=== PATIENT | female | born 1965 | race African-American/Black ===

== ENCOUNTER 2025-11-14 03:48 | Emergency (ER) | payer MEDICAID ==
[~2025-11-14] VITALS: Ht 157.5 cm; Wt 55.0 kg
[2025-11-14 03:52] VITALS: O2SAT 99
[2025-11-14] MEDS: METOCLOPRAMIDE HCL 10MG TABLET PO ONE (04:27)
[2025-11-14] MEDS: DIPHENHYDRAMINE 25MG CAPSULE PO ONE (05:16)
[2025-11-14] MEDS: KETOROLAC 15MG/ML VIAL IM ONE (05:21)
[2025-11-14 05:55] LABS: BASOPHILS % 0.7 % (0.0-2.0); EOSINOPHILS % 3.5 % (0.0-5.0); HEMATOCRIT. 37.9 % (36.0-48.0); HEMOGLOBIN. 13.5 g/dL (12.0-16.0); LYMPHOCYTES % 29.9 % (20.0-50.0); MEAN PLATELET VOLUME 9.2 fl (7.4-10.4); MONOCYTES % 14.1 % (2.0-8.0); NEUTROPHILS % 51.8 % (40.0-76.0); PLATELET 227 x1000/uL (130-400); RED BLOOD CELL COUNT 4.33 mill/uL (4.2-5.4); RED CELL DISTRIBUTION WIDTH 13.7 % (11.6-14.6)
[2025-11-14 06:11] LABS: CREATININE 0.8 mg/dL (0.6-1.0); UREA NITROGEN BLOOD < 5 mg/dL (9-23)
[2025-11-14] MEDS: DIPHENHYDRAMINE 25MG CAPSULE PO NR (06:31)
[2025-11-14] MEDS: SODIUM CHLORIDE 0.9% 1,000 ML IV ONE (06:40)
[2025-11-14 08:13] LABS: CLARITY URINE CLEAR (CLEAR); COLOR URINE YELLOW (YELLOW); GLUCOSE URINE NEGATIVE (NEGATIVE); KETONES URINE NEGATIVE (NEGATIVE); LEUKOCYTE ESTERASE URINE NEGATIVE (NEGATIVE); NITRITE URINE NEGATIVE (NEGATIVE); OCCULT BLOOD URINE NEGATIVE (NEGATIVE); PH URINE 6.5 (4.5-8.0); PROTEIN URINE NEGATIVE (NEGATIVE); SPECIFIC GRAVITY URINE 1.003 (1.005-1.030); UROBILINOGEN URINE 0.2 E.U./dL (0.2-1.0)
[2025-11-14 08:44] LABS: *AMPHETAMINES SCREEN URINE NEGATIVE (NEGATIVE); *BARBITURATES SCREEN URINE NEGATIVE (NEGATIVE); *BENZODIAZEPINES SCREEN URINE NEGATIVE (NEGATIVE); *COCAINE SCREEN URINE NEGATIVE (NEGATIVE); CANNABINOID URINE SCREEN PRESUMPTIVE POSITIVE (NEGATIVE); ECSTASY MDMA SCREEN URINE NEGATIVE (NEGATIVE); METHADONE URINE SCREEN NEGATIVE (NEGATIVE); OPIATES URINE SCREEN NEGATIVE (NEGATIVE); PHENCYCLIDINE URINE SCREEN NEGATIVE (NEGATIVE)
[2025-11-14] MEDS ORDERED: TRAM50TA3 MT (10:06)
[2025-11-14] MEDS ORDERED: IBUP-1455 MT (10:06)
[2025-11-14] MEDS: TRAMADOL 50MG TABLET PO ONE (10:50)
[2025-11-14] MEDS: IBUPROFEN 600MG TABLET PO ONE (10:50)
[2025-11-14 11:11] VITALS: BP 124/75; PULSE 55; RESP 22; TEMP 37.1; O2SAT 98
== END 2025-11-14 11:24 | disposition home or self-care (01) ==
LOC: ER 03:48 → CMPBEDREQ 11:35
DX: R51.9 Headache, unspecified (principal); M54.9 Dorsalgia, unspecified
CPT/HCPCS: 80305; 80048; 81003; 85025; 36415; 70450; 96372; 99285; Q0163; J8597; J1885; J7030; Z7610